=== PATIENT | female | born 1995 | race Caucasian/White ===

== ENCOUNTER 2021-06-01 15:37 | Emergency (ER) | payer MEDICAID, OTHER ==
--- NOTE | 2021-06-01 16:43 | EDM.PDOC ---
ED HPI GENERAL MEDICAL PROBLEM - General Stated Complaint: VOMITING, Time Seen by Provider: 06/01/21 16:43 Source of Information: Reports: Patient History Limitations: Reports: No Limitations - History of Present Illness INITIAL COMMENTS - FREE TEXT/NARRATIVE: 26-year-old female who reports onset at approximately 4 AM today of nausea with vomiting and she has had vomiting 30+ time since then. She states she has tried to drink water or other fluids multiple times and tried to eat crackers and every time she tries to do that she has vomiting. She also reports she has tried peppermint that did not seem to help. She called her OB doctor in [place] and got a prescription for Phenergan and try to take one of those but had vomiting almost immediately after she took a Phenergan and had no relief of her symptoms. She continues to have nausea and now feels very weak. She states she did have urine output at 8:00 this morning but has had no urine output since then. She does feel weak and dizzy tickly when she is trying to stand. She has had no fevers or chills. No abdominal pain. No vaginal bleeding. No vaginal fluid leakage. She tells me she is approximately 11 weeks gestation by early ultr asound that was done at 8 weeks. She is a 1 para 0. She had been having some nausea and she has had some vomiting but nothing as protracted as this. She has no pain. She would rate her pain as a 0/10. There are no other associated signs or symptoms. There are no other modifying factors. 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 The patient is a and is 11 weeks gestation by early ultrasound.) Social & Family History - Tobacco Use Tobacco Use Status *Q: Unknown Ever Used Tobacco (Nonsmoker) - Alcohol Use Alcohol Use History: No - Living Situation & Occupation Occupation: Employed (Works at [employer].) ED ROS GENERAL - Review of Systems Review Of Systems: See Below Constitutional: Reports: Weakness, Fatigue. Denies: Fever, Chills HEENT: Denies: Throat Pain, Throat Swelling Respiratory: Denies: Shortness of Breath, Cough Cardiovascular: Reports: Lightheadedness. Denies: Chest Pain, Syncope Endocrine: Reports: Fatigue GI/Abdominal: Reports: Nausea, Vomiting. Denies: Diarrhea : Denies: Discharge, Dysuria, Hematuria Musculoskeletal: Denies: Neck Pain, Back Pain Skin: Denies: Diaphoresis, Rash Neurological: Reports: Dizziness. Denies: Headache, Difficulty Walking Psychiatric: Denies: Anxiety Hematologic/Lymphatic: Denies: Easy Bleeding, Easy Bruising ED EXAM, GENERAL - Physical Exam Exam: See Below Exam Limited By: No Limitations General Appearance: Alert, WD/WN, Moderate Distress (Appears quite uncomfortable. Had been vomiting prior to my arrival to the room.) Eye Exam: Bilateral Eye: EOMI, Normal Inspection (Sclera are anicteric), PERRL Ears: Normal External Exam, Hearing Grossly Normal Ear Exam: Bilateral Ear: Auricle Normal Nose: Normal Inspection, Normal Mucosa, No Blood Throat/Mouth: Normal Voice, No Airway Compromise, Other (Dry mucous membranes.) Head: Atraumatic, Normocephalic Neck: Normal Inspection, Supple, Non-Tender, Full Range of Motion Respiratory/Chest: No Respiratory Distress, Lungs Clear, Normal Breath Sounds, No Accessory Muscle Use, Chest Non-Tender Cardiovascular: Normal Peripheral Pulses, Regular Rate, Rhythm, No Edema, No Gallop Peripheral Pulses: 2+: Radial (L), Radial (R), Dorsalis Pedis (L), Dorsalis Pedis (R) GI/Abdominal: Normal Bowel Sounds, Soft, Non-Tender Back Exam: Normal Inspection. No: CVA Tenderness (R), CVA Tenderness (L) Extremities: Normal Inspection, Normal Range of Motion, Non-Tender, No Pedal Edema, Normal Capillary Refill Neurological: Alert, Oriented, CN II-XII Intact, Normal Cognition, No Motor/Sensory Deficits Psychiatric: Normal Affect Skin Exam: Warm, Dry, Intact, Normal Color, No Rash Course - Vital Signs Last Recorded V/S: Last Vital Signs Temp 37.1 C 06/01/21 15:37 Pulse 99 06/01/21 15:37 Resp 18 06/01/21 15:37 BP 116/76 06/01/21 15:37 Pulse Ox 93 L 06/01/21 15:37 - Orders/Labs/Meds Orders: Active Orders 24 hr Category Date Time Status Peripheral IV Insertion Adult [OM.PC] Routine Oth 06/01/21 17:00 Ordered Labs: Laboratory Tests 06/01/21 06/01/21 06/01/21 Range/Units 17:15 17:15 20:26 WBC 6.4 (3.0-10.3) x10-3/uL RBC 4.12 (3.60-5.20) x10(6)uL Hgb 12.1 (11.4-15.5) g/dL Hct 36.0 (34.2-48.2) % MCV 87.4 (76.7-100.5) fL MCH 29.2 (23.9-33.9) pg MCHC 33.5 (31.9-34.8) g/dL RDW 13.1 (12.3-16.5) % Plt Count 220 (151-488) x10(3)uL MPV 8.1 (7.1-12.4) fL Add Manual Diff Yes Neutrophils % (Manual) 85 H (46-82) % Band Neutrophils % 2 (0-6) % Lymphocytes % (Manual) 5 L (13-37) % Monocytes % (Manual) 8 (4-12) % Sodium 138 (135-145) mmol/L Potassium 3.4 L (3.5-5.3) mmol/L Chloride 102 (100-110) mmol/L Carbon Dioxide 23 (21-32) mmol/L BUN 14 (7-18) mg/dL Creatinine 0.6 (0.55-1.02) mg/dL Est Cr Clr Drug Dosing TNP Estimated GFR (MDRD) > 60 (>60) BUN/Creatinine Ratio 23.3 H (9-20) Glucose 110 (80-116) mg/dL Calcium 9.1 (8.6-10.2) mg/dL Magnesium 1.9 (1.8-2.5) mg/dL Total Bilirubin 0.3 (0.1-1.3) mg/dL AST 19 (5-25) IU/L ALT 24 (12-36) U/L Alkaline Phosphatase 35 L (56-112) IU/L Total Protein 7.3 (6.0-8.0) g/dL Albumin 4.0 (3.5-5.2) g/dL Globulin 3.3 g/dL Albumin/Globulin Ratio 1.2 Urine Color Yellow (YELLOW) Urine Appearance Clear (CLEAR) Urine pH 6.0 (5.0-6.5) Ur Specific [place] 1.025 (1.010-1.025) Urine Protein Trace (NEGATIVE) mg/dL Urine Glucose (UA) Normal (NORMAL) mg/dL Urine Ketones 150 H (NEGATIVE) mg/dL Urine Occult Blood Negative (NEGATIVE) Urine Nitrite Negative (NEGATIVE) Urine Bilirubin Negative (NEGATIVE) Urine Urobilinogen Normal (NEGATIVE) mg/dL Ur Leukocyte Esterase Negative (NEGATIVE) Urine RBC 0-5 (0-5) Urine WBC 0-5 (0-5) Ur Squamous Epith Cells Few H (NS,R,O) Urine Bacteria Few H (NS) Urine Mucus Moderate H (NS) Meds: Medications Discontinued Medications Generic Name Dose Route Start Last Admin Trade Name Freq PRN Reason Stop Dose Admin Promethazine HCl 25 mg/ Sodium 51 mls @ 200 mls/hr 06/01/21 17:01 06/01/21 17:27 Chloride IV 06/01/21 17:16 200 mls/hr ONETIME ONE Administration Sodium Chloride 1,000 mls @ 999 mls/hr 06/01/21 17:00 06/01/21 18:30 Normal Saline IV 999 mls/hr .BOLUS GERBER Administration Sodium Chloride 10 ml 06/01/21 17:00 Sodium Chloride 0.9% 10 Ml Syringe FLUSH ASDIRECTED PRN Keep Vein Open - Re-Assessments/Exams Free Text/Narrative Re-Assessment/Exam: 06/01/21 19:50: All the patient's blood tests were reassuring. There were no electrolyte abnormalities. Patient's nausea has basically resolved. She has had no more vomiting. She has had 2 L of normal saline IV as well as Phenergan 25 mg IV. She feels improved. I will have her drink some liquids. She has not provided us with urine yet and I am awaiting this. 06/01/21 21:20: The patient is taking by mouth well. She has no more nausea and has had no more vomiting. Her urinalysis was concentrated but showed no evidence of infection. She feels much improved. She's been able to walk and tolerated that well. I feel that she is stable for discharge at this point. I discussed all of this with the patient the patient is stable for discharge and agreeable to discharge. Departure - Departure Time of Disposition: 21:30 Disposition: Home, Self-Care 01 Condition: Good (Improved) Clinical Impression: Hyperemesis gravidarum, Dehydration Nausea and vomiting Qualifiers: Vomiting type: unspecified Vomiting Intractability: intractable Qualified Code(s): R11.2 - Nausea with vomiting, unspecified - Discharge Information Instructions: Nausea and Vomiting, Adult, [id number], Dehydration, Adult, [id number] Referrals: Leah Frias NP [Primary Care Provider] - Forms: ED Department Discharge Additional Instructions: Your blood tests were reassuring. You did appear to be dehydrated. Your urine test showed no evidence of infection. You improved significantly after the IV fluids and the IV antinausea medication. The prescription that you got from your doctor is a good antinausea medication. Small amounts of fluids frequently and increase your fluid intake as tolerated. You can try crackers and other bland type foods. Take the antinausea medication that you have as needed for any nausea. Back to the emergency department for unrelenting vomiting, abdominal pain, fevers or any other concerning signs or symptoms. - My Orders Last 24 Hours: My Active Orders 06/01/21 17:00 Peripheral IV Insertion Adult [OM.PC] Routine - Assessment/Plan Last 24 Hours: My Active Orders 06/01/21 17:00 Peripheral IV Insertion Adult [OM.PC] Routine
[2021-06-01] MEDS ORDERED: Sodium Chloride 0.9% 10 ML Syringe FLUSH PRN (17:00)
[2021-06-01] MEDS ORDERED: Promethazine 25 MG in Sodium Chloride 0.9% 50 ML IV ONE (17:01)
[2021-06-01] MEDS: Sodium Chloride 0.9% 1,000 ML IV SCH ×2 (17:29→18:30)
== END 2021-06-01 22:28 | disposition home or self-care (01) ==
LOC: FB.ED 15:37
DX: O99.281 Endocrine, nutritional and metabolic diseases complicating pregnancy, first trimester (principal); E86.0 Dehydration; O21.0 Mild hyperemesis gravidarum; Z3A.11 11 weeks gestation of pregnancy
CPT/HCPCS: 36415; 80053; 81001; 83735; 85025; 96374; 99284-25; J2550; J7030